=== PATIENT | female | born 1990 | race Two or more races ===

== ENCOUNTER 2020-11-27 05:32 | Inpatient (IN) | payer OTHER ==
[2020-11-27] MEDS ORDERED: Terbutaline 1 MG/ML SDV SUBCUT PRN (06:07)
[2020-11-27] MEDS ORDERED: Carboprost Tromethamine 250 MCG/1 ML Amp IM PRN (06:07)
[2020-11-27] MEDS ORDERED: Sodium Chloride 0.9% 10 ML SDV IV PRN (06:07)
[2020-11-27] MEDS ORDERED: Ondansetron 4 MG/2 ML SDV IVPUSH PRN (06:07)
[2020-11-27] MEDS ORDERED: Tranexamic Acid 1,000 MG in Sodium Chloride 0.9% 100 ML IV PRN (06:07)
[2020-11-27] MEDS ORDERED: Sodium Chloride 0.9% 2.5 ML Syringe FLUSH PRN (06:07)
[2020-11-27] MEDS ORDERED: Water For Irrigation,Sterile 1,000 ML Container IRR PRN (06:07)
[2020-11-27] MEDS ORDERED: Butorphanol 1 MG/ML SDV IVPUSH PRN (06:07)
[2020-11-27] MEDS ORDERED: Sodium Chloride 0.9% 10 ML Syringe FLUSH PRN (06:07)
[2020-11-27] MEDS ORDERED: Lidocaine 1% 50 ML MDV INJECT PRN (06:07)
[2020-11-27] MEDS ORDERED: Methylergonovine 0.2 MG/1 ML Amp IM PRN (06:07)
[2020-11-27] MEDS ORDERED: Misoprostol 200 MCG Tab PO PRN (06:07)
[2020-11-27] MEDS ORDERED: Oxytocin/0.9 % Sodium Chloride 30 UNIT/500 ML BAG IV SCH ×2 (06:15)
[2020-11-27] MEDS ORDERED: 50% Dextrose in Water 50 ML Syringe IVPUSH PRN ×2 (06:16→15:31)
[2020-11-27] MEDS ORDERED: Glucagon,Human Recombinant 1 MG Vial IM PRN ×2 (06:16→15:31)
[2020-11-27] MEDS ORDERED: Dextrose 5%-Lactated Ringers 1,000 ML IV SCH (06:30)
[2020-11-27] MEDS ORDERED: Insulin Regular, Human 100 Units/ML 10 ML Vial IV SCH (08:00)
[2020-11-27] MEDS: Lactated Ringers 1,000 ML IV SCH ×2 (08:22→11:46)
[2020-11-27] MEDS ORDERED: Insulin Regular in 0.9 % NACL 100 ML IV SCH (08:30)
[2020-11-27] MEDS ORDERED: Bupivacaine 0.25% 30 ML SDV ONE (11:26)
[2020-11-27] MEDS ORDERED: Ropivacaine HCl/PF 200 ML ONE (11:26)
[2020-11-27] MEDS ORDERED: Acetaminophen 500 MG Tab PO PRN (15:24)
[2020-11-27] MEDS ORDERED: Witch Hazel Medicated Pads 40/Jar TOP PRN (15:24)
[2020-11-27] MEDS ORDERED: Benzocaine/Menthol 20%-0.5% Spray 78 GM Cannister TOP PRN (15:24)
[2020-11-27] MEDS ORDERED: Bisacodyl 10 MG Supp RECTAL PRN (15:24)
[2020-11-27] MEDS ORDERED: Docusate Sodium 100 MG Cap PO PRN (15:24)
[2020-11-27] MEDS ORDERED: oxyCODONE 5 MG Tab PO PRN (15:24)
[2020-11-27] MEDS ORDERED: Lanolin 100% Cream 7 GM Tube TOP PRN (15:24)
[2020-11-27] MEDS ORDERED: Ibuprofen 400 MG Tab PO PRN (15:24)
--- NOTE | 2020-11-27 15:33 | PCM.DEL ---
L & D Note - General Info Date of Service: 11/27/20 Mother's Due Date: 12/05/20 - Delivery Note Labor: Induced by Oxytocin Delivery Outcome: Livebirth Infant Delivery Method: Spontaneous Vaginal Delivery-Single Presentation: Right Occiput Anterior (KAIDEN) Nuchal Cord: None Amniotic Fluid Description: Clear Episiotomy Type: None Laceration: None Placenta: Intact, Spontaneous Cord: 3 Vessels Estimated Blood Loss: 300 Resuscitation Needed: No [place]: Bulb Syringe Score 1 min: 7 Score 5 min: 8 - General Info Date of Service: 11/27/20 - Patient Data Weight - Most Recent: 121.563 kg Lab Results Last 24 Hours: Laboratory Results - last 24 hr 11/27/20 11/27/20 11/27/20 Range/Units 06:10 06:14 06:54 WBC 9.04 (4.0-11.0) K/uL RBC 4.65 (4.30-5.90) M/uL Hgb 13.8 (12.0-16.0) g/dL Hct 40.1 (36.0-46.0) % MCV 86.2 (80.0-98.0) fL MCH 29.7 (27.0-32.0) pg MCHC 34.4 (31.0-37.0) g/dL RDW Std Deviation 43.4 (28.0-62.0) fl RDW Coeff of Kat 14 (11.0-15.0) % Plt Count 217 (150-400) K/uL MPV 11.00 (7.40-12.00) fL Nucleated RBC % 0.0 /100WBC Nucleated RBCs # 0 K/uL POC Glucose 122 H (70-99) mg/dL SARS-CoV-2 RNA (ОЛЬГА) (NEGATIVE) Blood Type O POSITIVE Antibody Screen NEGATIVE 11/27/20 11/27/20 11/27/20 Range/Units 07:00 10:22 11:07 WBC (4.0-11.0) K/uL RBC (4.30-5.90) M/uL Hgb (12.0-16.0) g/dL Hct (36.0-46.0) % MCV (80.0-98.0) fL MCH (27.0-32.0) pg MCHC (31.0-37.0) g/dL RDW Std Deviation (28.0-62.0) fl RDW Coeff of Kat (11.0-15.0) % Plt Count (150-400) K/uL MPV (7.40-12.00) fL Nucleated RBC % /100WBC Nucleated RBCs # K/uL POC Glucose 129 H 124 H (70-99) mg/dL SARS-CoV-2 RNA (ОЛЬГА) NEGATIVE (NEGATIVE) Blood Type Antibody Screen 11/27/20 11/27/20 11/27/20 Range/Units 12:02 13:02 14:03 WBC (4.0-11.0) K/uL RBC (4.30-5.90) M/uL Hgb (12.0-16.0) g/dL Hct (36.0-46.0) % MCV (80.0-98.0) fL MCH (27.0-32.0) pg MCHC (31.0-37.0) g/dL RDW Std Deviation (28.0-62.0) fl RDW Coeff of Kat (11.0-15.0) % Plt Count (150-400) K/uL MPV (7.40-12.00) fL Nucleated RBC % /100WBC Nucleated RBCs # K/uL POC Glucose 132 H 108 H 96 (70-99) mg/dL SARS-CoV-2 RNA (ОЛЬГА) (NEGATIVE) Blood Type Antibody Screen 11/27/20 Range/Units 15:00 WBC (4.0-11.0) K/uL RBC (4.30-5.90) M/uL Hgb (12.0-16.0) g/dL Hct (36.0-46.0) % MCV (80.0-98.0) fL MCH (27.0-32.0) pg MCHC (31.0-37.0) g/dL RDW Std Deviation (28.0-62.0) fl RDW Coeff of Kat (11.0-15.0) % Plt Count (150-400) K/uL MPV (7.40-12.00) fL Nucleated RBC % /100WBC Nucleated RBCs # K/uL POC Glucose 114 H (70-99) mg/dL SARS-CoV-2 RNA (ОЛЬГА) (NEGATIVE) Blood Type Antibody Screen Med Orders - Current: Current Medications Carboprost Tromethamine (Carboprost Tromethamine 250 Mcg/1 Ml Amp) 250 mcg IM ASDIRECTED PRN PRN Reason: Post Hemorrhage Oxytocin/Sodium Chloride (Oxytocin 30 Unit/500 Ml-Ns) 30 unit in 500 mls @ 999 mls/hr IV TITRATE ELEANOR Tranexamic Acid 1,000 mg/ (Sodium Chloride) 110 mls @ 660 mls/hr IV ONETIME PRN PRN Reason: Bleeding Oxytocin/Sodium Chloride (Oxytocin 30 Unit/500 Ml-Ns) 30 unit in 500 mls @ 2 mls/hr IV TITRATE ELEANOR; Protocol Last Titration: 11/27/20 13:32 Dose: 10 munits/min, 10 mls/hr Documented by: Lactated Ringer's (Ringers, Lactated) 1,000 mls @ 150 mls/hr IV ASDIRECTED ELEANOR Last Admin: 11/27/20 11:46 Dose: 150 mls/hr Documented by: Dextrose/Lactated Ringer's (Dextrose 5%-Lactated Ringers) 1,000 mls @ 100 mls /hr IV ASDIRECTED ELEANOR Last Admin: 11/27/20 09:15 Dose: 100 mls/hr Documented by: Insulin Regular in 0.9 % NACL (Myxredlin In Ns 100 Unit/100 Ml) 100 mls @ 0.5 mls/hr IV TITRATE ELEANOR; Protocol Last Titration: 11/27/20 14:07 Dose: 0.5 unit/hr, 0.5 mls/hr Documented by: Ondansetron HCl (Ondansetron 4 Mg/2 Ml Sdv) 4 mg IVPUSH Q6H PRN PRN Reason: Nausea/Vomiting Sodium Chloride (Sodium Chloride 0.9% 10 Ml Syringe) 10 ml FLUSH ASDIRECTED PRN PRN Reason: Keep Vein Open Sodium Chloride (Sodium Chloride 0.9% 2.5 Ml Syringe) 2.5 ml FLUSH ASDIRECTED PRN PRN Reason: Keep Vein Open Sodium Chloride (Sodium Chloride 0.9% 10 Ml Sdv) 10 ml IV ASDIRECTED PRN PRN Reason: IV Use Sterile Water (Water For Irrigation,Sterile 1,000 Ml Container) 1,000 ml IRR ASDIRECTED PRN PRN Reason: delivery Terbutaline Sulfate (Terbutaline 1 Mg/Ml Sdv) 0.25 mg SUBCUT ASDIRECTED PRN PRN Reason: Tacysystole Discontinued Medications Bupivacaine HCl (Bupivacaine 0.25% 30 Ml Sdv) Confirm Administered Dose 30 ml .ROUTE .STK-MED ONE Stop: 11/27/20 11:27 Butorphanol Tartrate (Butorphanol 1 Mg/Ml Sdv) 1 mg IVPUSH Q1H PRN PRN Reason: Pain (severe 7-10) Last Admin: 11/27/20 10:23 Dose: 1 mg Documented by: Dextrose/Water (50% Dextrose In Water 50 Ml Syringe) 50 ml IVPUSH ASDIRECTED PRN PRN Reason: Hypoglycemia Glucagon (Glucagon,Human Recombinant 1 Mg Vial) 1 mg IM ASDIRECTED PRN PRN Reason: Hypoglycemia Ropivacaine (Naropin 0.2%) Confirm Administered Dose 200 mls @ as directed .ROUTE .STK-MED ONE Stop: 11/27/20 11:27 Insulin Human Regular (Insulin Regular, Human 100 Units/Ml 10 Ml Vial) 0.5 unit IV Q2HR ELEANOR; Protocol Lidocaine HCl (Lidocaine 1% 50 Ml Mdv) 50 ml INJECT ONETIME PRN PRN Reason: Laceration repair Methylergonovine Maleate (Methylergonovine 0.2 Mg/1 Ml Amp) 0.2 mg IM DIRECTED PRN PRN Reason: Post Hemorrhage Misoprostol (Misoprostol 200 Mcg Tab) 200 mcg PO ONETIME PRN PRN Reason: Post Hemorrhage - Exam Urinary Catheter Total Time: 0Days 0Hours - Problem List Review Problem List Initiated/Reviewed/Updated: Yes - Assessment Assessment:: 30-year-old (38w6d dated by ultrasound at 8 weeks) induction of labor d/t gestational diabetes insulin controlled with uncomplicated vaginal delivery. Viable girl. Apgars 7 and 8. Weight 3810 grams. GBS negative, rubella immune, . POC glucose 114 - Plan Plan:: - Routine care - Insulin adjusted - Encourage ambulation - F/u in clinic in 4 weeks
--- NOTE | 2020-11-27 16:30 | PCM.PREANE ---
Preanesthetic Assessment - Anesthesia/Transfusion/Family Hx Anesthesia History: Prior Anesthesia Without Reaction Family History of Anesthesia Reaction: No Transfusion History: No Prior Transfusion(s) Intubation History: Unknown - Review of Systems General: No Symptoms Pulmonary: No Symptoms Cardiovascular: No Symptoms Gastrointestinal: No Symptoms Neurological: No Symptoms Other: Reports: None - Physical Assessment Height: 5 ft 4 in Weight: 268 lb ASA Class: 2 Mental Status: Alert & Oriented x3 Airway Class: Mallampati = 3 Dentition: Reports: Normal Dentition ROM/Head Extension: Full Lungs: Clear to Auscultation, Normal Respiratory Effort Cardiovascular: Regular Rate, Regular Rhythm - Lab Values: Laboratory Last Values WBC 9.04 K/uL (4.0-11.0) 11/27/20 06:54 RBC 4.65 M/uL (4.30-5.90) 11/27/20 06:54 Hgb 13.8 g/dL (12.0-16.0) 11/27/20 06:54 Hct 40.1 % (36.0-46.0) 11/27/20 06:54 MCV 86.2 fL (80.0-98.0) 11/27/20 06:54 MCH 29.7 pg (27.0-32.0) 11/27/20 06:54 MCHC 34.4 g/dL (31.0-37.0) 11/27/20 06:54 RDW Std Deviation 43.4 fl (28.0-62.0) 11/27/20 06:54 RDW Coeff of Kat 14 % (11.0-15.0) 11/27/20 06:54 Plt Count 217 K/uL (150-400) 11/27/20 06:54 MPV 11.00 fL (7.40-12.00) 11/27/20 06:54 Nucleated RBC % 0.0 /100WBC 11/27/20 06:54 Nucleated RBCs # 0 K/uL 11/27/20 06:54 Cord ABG pH 7.277 (7.18-7.38) 11/27/20 15:03 Cord ABG Base Excess -3 (-10--2) 11/27/20 15:03 Cord VBG pH 7.325 (7.25-7.45) 11/27/20 15:03 Cord VBG Base Excess -2 (-10--2) 11/27/20 15:03 POC Glucose 114 mg/dL (70-99) H 11/27/20 15:00 SARS-CoV-2 RNA (ОЛЬГА) NEGATIVE (NEGATIVE) 11/27/20 07:00 Blood Type O POSITIVE 11/27/20 06:10 Antibody Screen NEGATIVE 11/27/20 06:10 - Allergies Allergies/Adverse Reactions: Allergies Allergy/AdvReac Type Severity Reaction Status Date / Time aspirin Allergy Severe Stomach Verified 11/27/20 06:03 Upset - Blood Blood Available: Yes Product(s) Available: PRBC, FFP, Platelets - Anesthesia Plan Pre-Op Medication Ordered: None - Acknowledgements Anesthesia Type Planned: Epidural Pt an Appropriate Candidate for the Planned Anesthesia: Yes Alternatives and Risks of Anesthesia Discussed w Pt/Guardian: Yes Pt/Guardian Understands and Agrees with Anesthesia Plan: Yes PreAnesthesia Questionnaire - Past Health History Medical/Surgical History: Denies Medical/Surgical History [employer] History: Reports: Endocrine/Metabolic History: Reports: Diabetes, Gestational, Obesity/BMI 30+ - Past Surgical History Endocrine Surgical History: Reports: None - SUBSTANCE USE Tobacco Use Status *Q: Never Tobacco User Recreational Drug Use History: No - HOME MEDS Home Medications: Home Meds Insulin NPH/Insulin Reg,Human [HumuLIN 70-30] 12 units SQ BEDTIME 11/27/20 [History] Insulin Regular, Human [HumuLIN R] 12 unit SQ BEDTIME 11/27/20 [History] - CURRENT (IN HOUSE) MEDS Current Meds: Current Medications Acetaminophen (Acetaminophen 500 Mg Tab) 500 mg PO Q4H PRN PRN Reason: Pain (mild 1-3) Acetaminophen (Acetaminophen 500 Mg Tab) 1,000 mg PO Q4H PRN PRN Reason: Pain (mild 1-3) Benzocaine/Menthol (Benzocaine/Menthol 20%-0.5% [place] 78 Gm Cannister) 78 gm TOP ASDIRECTED PRN PRN Reason: Perineal Comfort Measure Last Admin: 11/27/20 16:24 Dose: 1 can Documented by: Bisacodyl (Bisacodyl 10 Mg Supp) 10 mg RECTAL ONETIME PRN PRN Reason: Constipation Carboprost Tromethamine (Carboprost Tromethamine 250 Mcg/1 Ml Amp) 250 mcg IM ASDIRECTED PRN PRN Reason: Post Hemorrhage Dextrose/Water (50% Dextrose In Water 50 Ml Syringe) 50 ml IVPUSH ASDIRECTED PRN PRN Reason: Hypoglycemia Docusate Sodium (Docusate Sodium 100 Mg Cap) 100 mg PO Q12H PRN PRN Reason: Constipation Emollient Ointment (Lanolin 100% Cream 7 Gm Tube) 0 gm TOP ASDIRECTED PRN PRN Reason: Sore Nipples Glucagon (Glucagon,Human Recombinant 1 Mg Vial) 1 mg IM ASDIRECTED PRN PRN Reason: Hypoglycemia Oxytocin/Sodium Chloride (Oxytocin 30 Unit/500 Ml-Ns) 30 unit in 500 mls @ 999 mls/hr IV TITRATE ELEANOR Last Admin: 11/27/20 15:04 Dose: 500 mls/hr Documented by: Tranexamic Acid 1,000 mg/ (Sodium Chloride) 110 mls @ 660 mls/hr IV ONETIME PRN PRN Reason: Bleeding Oxytocin/Sodium Chloride (Oxytocin 30 Unit/500 Ml-Ns) 30 unit in 500 mls @ 2 mls/hr IV TITRATE ELEANOR; Protocol Last Titration: 11/27/20 13:32 Dose: 10 munits/min, 10 mls/hr Documented by: Lactated Ringer's (Ringers, Lactated) 1,000 mls @ 150 mls/hr IV ASDIRECTED [facility] Last Admin: 11/27/20 11:46 Dose: 150 mls/hr Documented by: Dextrose/Lactated Ringer's (Dextrose 5%-Lactated Ringers) 1,000 mls @ 100 mls/hr IV ASDIRECTED [facility] Last Admin: 11/27/20 09:15 Dose: 100 mls/hr Documented by: Insulin Regular in 0.9 % NACL (Myxredlin In Ns 100 Unit/100 Ml) 100 mls @ 0.5 mls/hr IV TITRATE [facility]; Protocol Last Titration: 11/27/20 15:00 Dose: 1 unit/hr, 1 mls/hr Documented by: Ibuprofen (Ibuprofen 400 Mg Tab) 400 mg PO Q4H PRN PRN Reason: Pain (mild 1-3) Ibuprofen (Ibuprofen 800 Mg Tab) 800 mg PO Q6H PRN PRN Reason: Pain (mild 1-3) Insulin Human Regular (Insulin Regular, Human 100 Units/Ml 10 Ml Vial) 0 unit SUBCUT QIDACANDBED [facility]; Protocol Ondansetron HCl (Ondansetron 4 Mg/2 Ml Sdv) 4 mg IVPUSH Q6H PRN PRN Reason: Nausea/Vomiting Oxycodone HCl (Oxycodone 5 Mg Tab) 5 mg PO Q2H PRN PRN Reason: Pain (severe 7-10) Sodium Chloride (Sodium Chloride 0.9% 10 Ml Syringe) 10 ml FLUSH ASDIRECTED PRN PRN Reason: Keep Vein Open Sodium Chloride (Sodium Chloride 0.9% 2.5 Ml Syringe) 2.5 ml FLUSH ASDIRECTED PRN PRN Reason: Keep Vein Open Sodium Chloride (Sodium Chloride 0.9% 10 Ml Sdv) 10 ml IV ASDIRECTED PRN PRN Reason: IV Use Sterile Water (Water For Irrigation,Sterile 1,000 Ml Container) 1,000 ml IRR ASDIRECTED PRN PRN Reason: delivery Terbutaline Sulfate (Terbutaline 1 Mg/Ml Sdv) 0.25 mg SUBCUT ASDIRECTED PRN PRN Reason: Tacysystole Witch Eli (Witch Eli Medicated Pads 40/Jar) 1 pad TOP ASDIRECTED PRN PRN Reason: comfort care Last Admin: 11/27/20 16:24 Dose: 1 container Documented by: Discontinued Medications Bupivacaine HCl (Bupivacaine 0.25% 30 Ml Sdv) Confirm Administered Dose 30 ml .ROUTE .STK-MED ONE Stop: 11/27/20 11:27 Butorphanol Tartrate (Butorphanol 1 Mg/Ml Sdv) 1 mg IVPUSH Q1H PRN PRN Reason: Pain (severe 7-10) Last Admin: 11/27/20 10:23 Dose: 1 mg Documented by: Dextrose/Water (50% Dextrose In Water 50 Ml Syringe) 50 ml IVPUSH ASDIRECTED PRN PRN Reason: Hypoglycemia Glucagon (Glucagon,Human Recombinant 1 Mg Vial) 1 mg IM ASDIRECTED PRN PRN Reason: Hypoglycemia Ropivacaine (Naropin 0.2%) Confirm Administered Dose 200 mls @ as directed .ROUTE .[employer]-MED ONE Stop: 11/27/20 11:27 Insulin Human Regular (Insulin Regular, Human 100 Units/Ml 10 Ml Vial) 0.5 unit IV Q2HR [facility]; Protocol Lidocaine HCl (Lidocaine 1% 50 Ml Mdv) 50 ml INJECT ONETIME PRN PRN Reason: Laceration repair Methylergonovine Maleate (Methylergonovine 0.2 Mg/1 Ml Amp) 0.2 mg IM ASDIRECTED PRN PRN Reason: Post Hemorrhage Misoprostol (Misoprostol 200 Mcg Tab) 200 mcg PO ONETIME PRN PRN Reason: Post Hemorrhage - Pre-Procedure Checklist Attending Provider Aware: Yes Chart Reviewed: Yes Consent Signed: Yes Labs Reviewed: Yes VS/FHR Reviewed: Yes Patient Identification Confirmation Method: Reports: Verbal Patient Pt an Appropriate Candidate for the Planned Anesthesia: Yes Alternatives and Risks of Anesthesia Discussed w Pt/Guardian: Yes - Procedure Procedure Start Date: 11/27/20 Procedure Start Time: 11:[address]: Reports: Blood Pressure, Heart Rate, SPO2 Functional IV: Yes Safety Measures: Reports: Patient Identified, Procedure Verified, Site Verified, Procedure Time Out Patient Position: Reports: Sitting Prep: Reports: Betadine x3 Local Anesthetic: Reports: Intradermal Wheal w Lidocaine 1% Regional Placement Level: Reports: L3-4 Needle: Reports: 17 g Touhy Approach: Reports: Midline Technique: Reports: ABBIE Plastic Syringe Parasthesia: Reports: None Fluid Obtained: Reports: None Test Dose Time: 11:36 Test Dose Medication: Reports: Lidocaine 1.5% w Epinephrine 1:200,000 Test Dose Response: Reports: Negative Loading Dose Time: 11:35 Loading Dose Medication: bupivicaine 0.25% 10 cc Loading Dose Patient Position: sitting Continuous Infusion Start Time: 11:40 Continuous Infusion Medication: ropivicaine 0.2% Continuous Infusion Rate: 16 Continuous Infusion PCS Bolus Option: 4 Continuous Infusion Lockout Dose (cc/hr): 32 VS and FHR Monitored in Unit Post Placement: Yes Procedure End Date: 11/27/20 Procedure End Time: 12:32
--- NOTE | 2020-11-27 16:30 | PCM.POSTAN ---
POST ANESTHESIA ASSESSMENT - MENTAL STATUS Mental Status: Alert, Oriented - RESPIRATORY Respiratory Status: Respiratory Rate WNL, Airway Patent, O2 Saturation Stable - CARDIOVASCULAR CV Status: Pulse Rate WNL, Blood Pressure Stable - GASTROINTESTINAL GI Status: No Symptoms - POST OP HYDRATION Hydration Status: Adequate & Stable
[2020-11-27] MEDS: Insulin Regular, Human 100 Units/ML 10 ML Vial SUBCUT SCH ×2 (18:07→23:00)
[2020-11-27] MEDS: Ibuprofen 800 MG Tab PO PRN (18:47)
--- NOTE | 2020-11-27 22:35 | OR ---
SURGEON: Yaritza Sanches M.D. DATE OF PROCEDURE: 11/27/2020 PREOPERATIVE DIAGNOSES: 1. 39-week intrauterine . 2. Gestational diabetes, insulin dependent. POSTOPERATIVE DIAGNOSES: 1. 39-week intrauterine . 2. Gestational diabetes, insulin dependent. PROCEDURE: Spontaneous vaginal delivery with intact perineum. PRIMARY SURGEON: Yaritza Sanches M.D. ANESTHESIA: Epidural. ESTIMATED BLOOD LOSS: 250 mL. COMPLICATIONS: None known. FINDINGS: Viable female. scores of 7 at one and 8 at five minutes. Weight is pending. Spontaneous delivery, intact placenta, three-vessel cord. DISPOSITION: Infant to , mom in LDRP. PROCEDURE DETAILS: Melanie is a 30-year-old, G2, P1, at 39 weeks' gestation who presents today for scheduled induction of labor due to gestational diabetes in that is insulin dependent. Upon admission, the patient had a category 1 heart tracing, routine labs were reassuring. She was COVID negative. She was initiated on an insulin drip and started on Pitocin, responded very nicely to this. Shortly after 9 a.m., was found to be 3 cm, 70% effaced, minus 2 station, underwent amniotomy, as she is group B strep negative. A large amount of clear fluid was returned. The patient continued to progress through the morning hours, became more uncomfortable, underwent regional anesthesia in the form of epidural, became more comfortable. Shortly before noon, she was found to be 6 cm, 80% effaced, minus 2 station, and shortly before 3 p.m., was found to be complete, 100% effaced, +3 station. The patient was placed in modified dorsal lithotomy position, was prepped and draped in the usual aseptic manner. With the next few contractions, she was able to push delivering the infant's head atraumatically spontaneously, followed by anterior shoulder and posterior shoulder, and remainder of the body without difficulty. The infant's oropharynx and nares were bulb suctioned. After a delayed, cord was clamped x2 and cut. Cord arterial, cord venous, and cord blood sampling were obtained. Light suprapubic pressure was applied while the placenta was delivered spontaneously intact. Vigorous fundal and uterine massage was then applied while 30 units of Pitocin was delivered in 500 mL of IV fluid. Upon inspection of cervix, vaginal sidewall, and perineum, they were found to be intact. Uterus remained firm. Hemostasis evident. Sponge, instrument, and needle counts correct. The patient remained in LDRP, to nursery. LB / ADAM /[id number]
[2020-11-28] MEDS: Ibuprofen 800 MG Tab PO PRN ×3 (01:30→18:36)
--- NOTE | 2020-11-28 07:39 | PCM.PNPP ---
- General Info Date of Service: 11/28/20 Admission Dx/Problem (Free Text): Uncomplicated vaginal delivery Subjective Update: Having pelvic pain this morning. Taking motrin and using a heating pad. POC glucose 184 last night and 159 this morning. No other concerns. Ambulating, urinating, and passing gas. Has not eaten this morning, but tolerated food last night. . - Review of Systems General: Reports: No Symptoms HEENT: Reports: No Symptoms Pulmonary: Reports: No Symptoms Cardiovascular: Reports: No Symptoms Gastrointestinal: Reports: Abdominal Pain Genitourinary: Reports: No Symptoms Musculoskeletal: Reports: No Symptoms Skin: Reports: No Symptoms Neurological: Reports: No Symptoms Psychiatric: Reports: No Symptoms - General Info Date of Service: 11/28/20 - Patient Data Vital Signs - Most Recent: Last Vital Signs Temp 36.2 C 11/28/20 06:00 Pulse 76 11/28/20 06:00 Resp 16 11/28/20 06:00 BP 105/64 11/28/20 06:00 Pulse Ox 97 11/28/20 06:00 Weight - Most Recent: 121.563 kg I&O - Last 24 Hours: Intake & Output 11/27/20 11/28/20 11/28/20 22:59 06:59 14:59 Output Total 500 Balance -500 Lab Results - Last 24 Hours: Laboratory Results - last 24 hr 11/27/20 11/27/20 11/27/20 Range/Units 06:10 07:00 10:22 Hgb (12.0-16.0) g/dL Hct (36.0-46.0) % Cord ABG pH (7.18-7.38) Cord ABG Base Excess (-10--2) Cord VBG pH (7.25-7.45) Cord VBG Base Excess (-10--2) POC Glucose 129 H (70-99) mg/dL SARS-CoV-2 RNA (ОЛЬГА) NEGATIVE (NEGATIVE) Blood Type O POSITIVE Antibody Screen NEGATIVE 11/27/20 11/27/20 11/27/20 Range/Units 11:07 12:02 13:02 Hgb (12.0-16.0) g/dL Hct (36.0-46.0) % Cord ABG pH (7.18-7.38) Cord ABG Base Excess (-10--2) Cord VBG pH (7.25-7.45) Cord VBG Base Excess (-10--2) POC Glucose 124 H 132 H 108 H (70-99) mg/dL SARS-CoV-2 RNA (ОЛЬГА) (NEGATIVE) Blood Type Antibody Screen 11/27/20 11/27/20 11/27/20 Range/Units 14:03 15:00 15:03 Hgb (12.0-16.0) g/dL Hct (36.0-46.0) % Cord ABG pH 7.277 (7.18-7.38) Cord ABG Base Excess -3 (-10--2) Cord VBG pH 7.325 (7.25-7.45) Cord VBG Base Excess -2 (-10--2) POC Glucose 96 114 H (70-99) mg/dL SARS-CoV-2 RNA (ОЛЬГА) (NEGATIVE) Blood Type Antibody Screen 11/27/20 11/27/20 11/28/20 Range/Units 18:07 22:46 05:05 Hgb 11.9 L (12.0-16.0) g/dL Hct 35.6 L (36.0-46.0) % Cord ABG pH (7.18-7.38) Cord ABG Base Excess (-10--2) Cord VBG pH (7.25-7.45) Cord VBG Base Excess (-10--2) POC Glucose 106 H 185 H (70-99) mg/dL SARS-CoV-2 RNA (ОЛЬГА) (NEGATIVE) Blood Type Antibody Screen 11/28/20 Range/Units 07:09 Hgb (12.0-16.0) g/dL Hct (36.0-46.0) % Cord ABG pH (7.18-7.38) Cord ABG Base Excess (-10--2) Cord VBG pH (7.25-7.45) Cord VBG Base Excess (-10--2) POC Glucose 159 H (70-99) mg/dL SARS-CoV-2 RNA (ОЛЬГА) (NEGATIVE) Blood Type Antibody Screen Med Orders - Current: Current Medications Acetaminophen (Acetaminophen 500 Mg Tab) 500 mg PO Q4H PRN PRN Reason: Pain (mild 1-3) Acetaminophen (Acetaminophen 500 Mg Tab) 1,000 mg PO Q4H PRN PRN Reason: Pain (mild 1-3) Benzocaine/Menthol (Benzocaine/Menthol 20%-0.5% [place] 78 Gm Cannister) 78 gm TOP ASDIRECTED PRN PRN Reason: Perineal Comfort Measure Last Admin: 11/27/20 16:24 Dose: 1 can Documented by: Bisacodyl (Bisacodyl 10 Mg Supp) 10 mg RECTAL ONETIME PRN PRN Reason: Constipation Carboprost Tromethamine (Carboprost Tromethamine 250 Mcg/1 Ml Amp) 250 mcg IM ASDIRECTED PRN PRN Reason: Post Hemorrhage Dextrose/Water (50% Dextrose In Water 50 Ml Syringe) 50 ml IVPUSH ASDIRECTED PRN PRN Reason: Hypoglycemia Docusate Sodium (Docusate Sodium 100 Mg Cap) 100 mg PO Q12H PRN PRN Reason: Constipation Emollient Ointment (Lanolin 100% Cream 7 Gm Tube) 0 gm TOP ASDIRECTED PRN PRN Reason: Sore Nipples Glucagon (Glucagon,Human Recombinant 1 Mg Vial) 1 mg IM ASDIRECTED PRN PRN Reason: Hypoglycemia Oxytocin/Sodium Chloride (Oxytocin 30 Unit/500 Ml-Ns) 30 unit in 500 mls @ 999 mls/hr IV TITRATE [facility] Last Admin: 11/27/20 15:04 Dose: 500 mls/hr Documented by: Tranexamic Acid 1,000 mg/ (Sodium Chloride) 110 mls @ 660 mls/hr IV ONETIME PRN PRN Reason: Bleeding Oxytocin/Sodium Chloride (Oxytocin 30 Unit/500 Ml-Ns) 30 unit in 500 mls @ 2 mls/hr IV TITRATE [facility]; Protocol Last Titration: 11/27/20 13:32 Dose: 10 munits/min, 10 mls/hr Documented by: Lactated Ringer's (Ringers, Lactated) 1,000 mls @ 150 mls/hr IV ASDIRECTED [facility] Last Admin: 11/27/20 11:46 Dose: 150 mls/hr Documented by: Dextrose/Lactated Ringer's (Dextrose 5%-Lactated Ringers) 1,000 mls @ 100 mls/hr IV ASDIRECTED [facility] Last Admin: 11/27/20 09:15 Dose: 100 mls/hr Documented by: Insulin Regular in 0.9 % NACL (Myxredlin In Ns 100 Unit/100 Ml) 100 mls @ 0.5 mls/hr IV TITRATE [facility]; Protocol Last Titration: 11/27/20 15:00 Dose: 1 unit/hr, 1 mls/hr Documented by: Ibuprofen (Ibuprofen 400 Mg Tab) 400 mg PO Q4H PRN PRN Reason: Pain (mild 1-3) Ibuprofen (Ibuprofen 800 Mg Tab) 800 mg PO Q6H PRN PRN Reason: Pain (mild 1-3) Last Admin: 11/28/20 01:30 Dose: 800 mg Documented by: Insulin Human Regular (Insulin Regular, Human 100 Units/Ml 10 Ml Vial) 0 unit SUBCUT QIDACANDBED [facility]; Protocol Last Admin: 11/27/20 23:00 Dose: 1 unit Documented by: Ondansetron HCl (Ondansetron 4 Mg/2 Ml Sdv) 4 mg IVPUSH Q6H PRN PRN Reason: Nausea/Vomiting Oxycodone HCl (Oxycodone 5 Mg Tab) 5 mg PO Q2H PRN PRN Reason: Pain (severe 7-10) Sodium Chloride (Sodium Chloride 0.9% 10 Ml Syringe) 10 ml FLUSH ASDIRECTED PRN PRN Reason: Keep Vein Open Sodium Chloride (Sodium Chloride 0.9% 2.5 Ml Syringe) 2.5 ml FLUSH ASDIRECTED PRN PRN Reason: Keep Vein Open Sodium Chloride (Sodium Chloride 0.9% 10 Ml Sdv) 10 ml IV ASDIRECTED PRN PRN Reason: IV Use Sterile Water (Water For Irrigation,Sterile 1,000 Ml Container) 1,000 ml IRR ASDIRECTED PRN PRN Reason: delivery Terbutaline Sulfate (Terbutaline 1 Mg/Ml Sdv) 0.25 mg SUBCUT ASDIRECTED PRN PRN Reason: Tacysystole Witch Eli (Witch Eli Medicated Pads 40/Jar) 1 pad TOP ASDIRECTED PRN PRN Reason: comfort care Last Admin: 11/27/20 16:24 Dose: 1 container Documented by: Discontinued Medications Bupivacaine HCl (Bupivacaine 0.25% 30 Ml Sdv) Confirm Administered Dose 30 ml .ROUTE .STK-MED ONE Stop: 11/27/20 11:27 Butorphanol Tartrate (Butorphanol 1 Mg/Ml Sdv) 1 mg IVPUSH Q1H PRN PRN Reason: Pain (severe 7-10) Last Admin: 11/27/20 10:23 Dose: 1 mg Documented by: Dextrose/Water (50% Dextrose In Water 50 Ml Syringe) 50 ml IVPUSH ASDIRECTED PRN PRN Reason: Hypoglycemia Glucagon (Glucagon,Human Recombinant 1 Mg Vial) 1 mg IM ASDIRECTED PRN PRN Reason: Hypoglycemia Ropivacaine (Naropin 0.2%) Confirm Administered Dose 200 mls @ as directed .ROUTE .[facility] ONE Stop: 11/27/20 11:27 Insulin Human Regular (Insulin Regular, Human 100 Units/Ml 10 Ml Vial) 0.5 unit IV Q2HR [facility]; Protocol Lidocaine HCl (Lidocaine 1% 50 Ml Mdv) 50 ml INJECT ONETIME PRN PRN Reason: Laceration repair Methylergonovine Maleate (Methylergonovine 0.2 Mg/1 Ml Amp) 0.2 mg IM ASDIRECTED PRN PRN Reason: Post Hemorrhage Misoprostol (Misoprostol 200 Mcg Tab) 200 mcg PO ONETIME PRN PRN Reason: Post Hemorrhage - Interaction Infant Disposition, : [place] to Nursery Infant Feeding: Breastfed Infant; Nursed Well Support Person: - Recovery Exam Fundal Tone: Firm Fundal Level: 1 Fingerbreadths Below Umbilicus Fundal Placement: Midline Lochia Amount: Scant Lochia Color: Rubra/Red Perineum Description: Intact, Minimal Bruising/Swelling Episiotomy/Laceration: None Bladder Status: Voiding Urinary Elimination: Voided Other Urinary Elimination, : Waiting for void post delivery/post catheter. - Exam General: Alert, Oriented Neck: Supple Lungs: Clear to Auscultation, Normal Respiratory Effort Cardiovascular: Regular Rate, Regular Rhythm GI/Abdominal Exam: Normal Bowel Sounds, Soft, No Organomegaly, Tender Extremities: Normal Inspection, Normal Range of Motion, Non-Tender, No Pedal Edema, Normal Capillary Refill Skin: Warm, Dry, Intact Neurological: No New Focal Deficit Psy/Mental Status: Alert, Normal Affect, Normal Mood - Problem List Review Problem List Initiated/Reviewed/Updated: Yes - Assessment Assessment:: 30-year-old (38w6d dated by ultrasound at 8 weeks) induction of labor d/t gestational diabetes insulin controlled with uncomplicated vaginal delivery. Viable girl. Apgars 7 and 8. Weight 3810 grams. GBS negative, rubella immune, . Having persistent pelvic pain while taking motrin, but received last dose at 0130. Hbg 11.9. POC glucose 159 this morning and 184 last night. - Plan Plan:: - Discussed the availability of motrin every 4 hours - Routine care - Can consider increased bedtime dose of insulin - Encourage ambulation - F/u in clinic in 4 weeks
[2020-11-28] MEDS: Insulin Regular, Human 100 Units/ML 10 ML Vial SUBCUT SCH ×4 (07:54→21:12)
--- NOTE | 2020-11-28 08:30 | PCM.SN.2 ---
- Free Text/Narrative Note: Patient seen and examined--VS are stable. Having some cramping which motrin is helping to control overall. Lochia is minimal. Patient on sliding scale for insulin for now. Will monitor and decide on home regimen based on today's glucose readings. Anticipate discharge in the morning.
[2020-11-28] MEDS: Acetaminophen 500 MG Tab PO PRN ×2 (12:26→21:10)
[2020-11-29] MEDS: Acetaminophen 500 MG Tab PO PRN (04:59)
[2020-11-29] MEDS: Ibuprofen 800 MG Tab PO PRN (04:59)
--- NOTE | 2020-11-29 08:13 | PCM.PNPP ---
<Maria Ines Kc - Last Filed: 11/29/20 08:14> - General Info Date of Service: 11/29/20 Admission Dx/Problem (Free Text): Uncomplicated vaginal delivery Subjective Update: No concerns overnight. Pain controlled with motrin. Ambulating, urinating, and tolerating food. and supplementing with formula. - Review of Systems General: Reports: No Symptoms HEENT: Reports: No Symptoms Pulmonary: Reports: No Symptoms Cardiovascular: Reports: No Symptoms Gastrointestinal: Reports: No Symptoms Genitourinary: Reports: No Symptoms Musculoskeletal: Reports: No Symptoms Skin: Reports: No Symptoms Neurological: Reports: No Symptoms Psychiatric: Reports: No Symptoms - General Info Date of Service: 11/29/20 - Patient Data Vital Signs - Most Recent: Last Vital Signs Temp 36.1 C 11/29/20 08:00 Pulse 71 11/29/20 08:00 Resp 18 11/29/20 08:00 BP 110/74 11/29/20 08:00 Pulse Ox 96 11/29/20 08:00 Weight - Most Recent: 121.563 kg Lab Results - Last 24 Hours: Laboratory Results - last 24 hr 11/28/20 11/28/20 11/28/20 Range/Units 12:12 18:05 21:12 POC Glucose 112 H 127 H 124 H (70-99) mg/dL Med Orders - Current: Current Medications Acetaminophen (Acetaminophen 500 Mg Tab) 500 mg PO Q4H PRN PRN Reason: Pain (mild 1-3) Acetaminophen (Acetaminophen 500 Mg Tab) 1,000 mg PO Q4H PRN PRN Reason: Pain (mild 1-3) Last Admin: 11/29/20 04:59 Dose: 1,000 mg Documented by: Benzocaine/Menthol (Benzocaine/Menthol 20%-0.5% [place] 78 Gm Cannister) 78 gm TOP ASDIRECTED PRN PRN Reason: Perineal Comfort Measure Last Admin: 11/27/20 16:24 Dose: 1 can Documented by: Bisacodyl (Bisacodyl 10 Mg Supp) 10 mg RECTAL ONETIME PRN PRN Reason: Constipation Carboprost Tromethamine (Carboprost Tromethamine 250 Mcg/1 Ml Amp) 250 mcg IM ASDIRECTED PRN PRN Reason: Post Hemorrhage Dextrose/Water (50% Dextrose In Water 50 Ml Syringe) 50 ml IVPUSH ASDIRECTED PRN PRN Reason: Hypoglycemia Docusate Sodium (Docusate Sodium 100 Mg Cap) 100 mg PO Q12H PRN PRN Reason: Constipation Last Admin: 11/28/20 12:26 Dose: 100 mg Documented by: Emollient Ointment (Lanolin 100% Cream 7 Gm Tube) 0 gm TOP ASDIRECTED PRN PRN Reason: Sore Nipples Glucagon (Glucagon,Human Recombinant 1 Mg Vial) 1 mg IM ASDIRECTED PRN PRN Reason: Hypoglycemia Oxytocin/Sodium Chloride (Oxytocin 30 Unit/500 Ml-Ns) 30 unit in 500 mls @ 999 mls/hr IV TITRATE [facility] Last Admin: 11/27/20 15:04 Dose: 500 mls/hr Documented by: Tranexamic Acid 1,000 mg/ (Sodium Chloride) 110 mls @ 660 mls/hr IV ONETIME PRN PRN Reason: Bleeding Oxytocin/Sodium Chloride (Oxytocin 30 Unit/500 Ml-Ns) 30 unit in 500 mls @ 2 mls/hr IV TITRATE [facility]; Protocol Last Titration: 11/27/20 13:32 Dose: 10 munits/min, 10 mls/hr Documented by: Lactated Ringer's (Ringers, Lactated) 1,000 mls @ 150 mls/hr IV ASDIRECTED [facility] Last Admin: 11/27/20 11:46 Dose: 150 mls/hr Documented by: Dextrose/Lactated Ringer's (Dextrose 5%-Lactated Ringers) 1,000 mls @ 100 mls/hr IV ASDIRECTED [facility] Last Admin: 11/27/20 09:15 Dose: 100 mls/hr Documented by: Insulin Regular in 0.9 % NACL (Myxredlin In Ns 100 Unit/100 Ml) 100 mls @ 0.5 mls/hr IV TITRATE [facility]; Protocol Last Titration: 11/27/20 15:00 Dose: 1 unit/hr, 1 mls/hr Documented by: Ibuprofen (Ibuprofen 400 Mg Tab) 400 mg PO Q4H PRN PRN Reason: Pain (mild 1-3) Ibuprofen (Ibuprofen 800 Mg Tab) 800 mg PO Q6H PRN PRN Reason: Pain (mild 1-3) Last Admin: 11/29/20 04:59 Dose: 800 mg Documented by: Insulin Human Regular (Insulin Regular, Human 100 Units/Ml 10 Ml Vial) 0 unit SUBCUT [facility]IDACANDBED [facility]; Protocol Last Admin: 11/28/20 21:12 Dose: Not Given Documented by: Ondansetron HCl (Ondansetron 4 Mg/2 Ml Sdv) 4 mg IVPUSH Q6H PRN PRN Reason: Nausea/Vomiting Oxycodone HCl (Oxycodone 5 Mg Tab) 5 mg PO Q2H PRN PRN Reason: Pain (severe 7-10) Sodium Chloride (Sodium Chloride 0.9% 10 Ml Syringe) 10 ml FLUSH ASDIRECTED PRN PRN Reason: Keep Vein Open Sodium Chloride (Sodium Chloride 0.9% 2.5 Ml Syringe) 2.5 ml FLUSH ASDIRECTED PRN PRN Reason: Keep Vein Open Sodium Chloride (Sodium Chloride 0.9% 10 Ml Sdv) 10 ml IV ASDIRECTED PRN PRN Reason: IV Use Sterile Water (Water For Irrigation,Sterile 1,000 Ml Container) 1,000 ml IRR ASDIRECTED PRN PRN Reason: delivery Terbutaline Sulfate (Terbutaline 1 Mg/Ml Sdv) 0.25 mg SUBCUT ASDIRECTED PRN PRN Reason: Tacysystole Witch Eli (Witch Eli Medicated Pads 40/Jar) 1 pad TOP ASDIRECTED PRN PRN Reason: comfort care Last Admin: 11/27/20 16:24 Dose: 1 container Documented by: Discontinued Medications Bupivacaine HCl (Bupivacaine 0.25% 30 Ml Sdv) Confirm Administered Dose 30 ml .ROUTE .[employer] ONE Stop: 11/27/20 11:27 Butorphanol Tartrate (Butorphanol 1 Mg/Ml Sdv) 1 mg IVPUSH Q1H PRN PRN Reason: Pain (severe 7-10) Last Admin: 11/27/20 10:23 Dose: 1 mg Documented by: Dextrose/Water (50% Dextrose In Water 50 Ml Syringe) 50 ml IVPUSH ASDIRECTED PRN PRN Reason: Hypoglycemia Glucagon (Glucagon,Human Recombinant 1 Mg Vial) 1 mg IM ASDIRECTED PRN PRN Reason: Hypoglycemia Ropivacaine (Naropin 0.2%) Confirm Administered Dose 200 mls @ as directed .ROUTE .[employer] ONE Stop: 11/27/20 11:27 Insulin Human Regular (Insulin Regular, Human 100 Units/Ml 10 Ml Vial) 0.5 unit IV Q2HR [facility]; Protocol Lidocaine HCl (Lidocaine 1% 50 Ml Mdv) 50 ml INJECT ONETIME PRN PRN Reason: Laceration repair Methylergonovine Maleate (Methylergonovine 0.2 Mg/1 Ml Amp) 0.2 mg IM ASDIRECTED PRN PRN Reason: Post Hemorrhage Misoprostol (Misoprostol 200 Mcg Tab) 200 mcg PO ONETIME PRN PRN Reason: Post Hemorrhage - Infant Interaction Infant Disposition, : at Bedside Feeding: Breastfed Infant; Nursed Well Support Person: - Recovery Exam Fundal Tone: Firm Fundal Level: 1 Fingerbreadths Below Umbilicus Fundal Placement: Midline Lochia Amount: Scant Lochia Color: Rubra/Red Episiotomy/Laceration: None Bladder Status: Voiding Urinary Elimination: Voided Other Urinary Elimination, : Waiting for void post delivery/post catheter. - Exam General: Alert, Oriented Neck: Supple Lungs: Clear to Auscultation, Normal Respiratory Effort Cardiovascular: Regular Rate, Regular Rhythm GI/Abdominal Exam: Normal Bowel Sounds Extremities: Normal Inspection, Non-Tender, No Pedal Edema Skin: Warm, Dry Neurological: No New Focal Deficit Psy/Mental Status: Alert, Normal Affect, Normal Mood - Problem List Review Problem List Initiated/Reviewed/Updated: Yes - Assessment Assessment:: 30-year-old (38w6d dated by ultrasound at 8 weeks) induction of labor d/t gestational diabetes insulin controlled with uncomplicated vaginal delivery. Viable girl. Apgars 7 and 8. Weight 3810 grams. GBS negative, rubella immune, . Pain controlled overnight. POC glucose 124 last night. - Plan Plan:: - Routine care - Motrin for pain - Encourage ambulation - Can likely discharge today - F/u in clinic in 4 weeks <Yaritza Sanches - Last Filed: 11/29/20 10:31> - Patient Data Vital Signs - Most Recent: Last Vital Signs Temp 36.1 C 11/29/20 08:00 Pulse 71 11/29/20 08:00 Resp 18 11/29/20 08:00 BP 110/74 11/29/20 08:00 Pulse Ox 96 11/29/20 08:00 Lab Results - Last 24 Hours: Laboratory Results - last 24 hr 11/28/20 11/28/20 11/28/20 Range/Units 12:12 18:05 21:12 POC Glucose 112 H 127 H 124 H (70-99) mg/dL 11/29/20 Range/Units 08:37 POC Glucose 130 H (70-99) mg/dL Med Orders - Current: Current Medications Acetaminophen (Acetaminophen 500 Mg Tab) 500 mg PO Q4H PRN PRN Reason: Pain (mild 1-3) Acetaminophen (Acetaminophen 500 Mg Tab) 1,000 mg PO Q4H PRN PRN Reason: Pain (mild 1-3) Last Admin: 11/29/20 04:59 Dose: 1,000 mg Documented by: Benzocaine/Menthol (Benzocaine/Menthol 20%-0.5% [place] 78 Gm Cannister) 78 gm TOP ASDIRECTED PRN PRN Reason: Perineal Comfort Measure Last Admin: 11/27/20 16:24 Dose: 1 can Documented by: Bisacodyl (Bisacodyl 10 Mg Supp) 10 mg RECTAL ONETIME PRN PRN Reason: Constipation Carboprost Tromethamine (Carboprost Tromethamine 250 Mcg/1 Ml Amp) 250 mcg IM ASDIRECTED PRN PRN Reason: Post Hemorrhage Dextrose/Water (50% Dextrose In Water 50 Ml Syringe) 50 ml IVPUSH ASDIRECTED PRN PRN Reason: Hypoglycemia Docusate Sodium (Docusate Sodium 100 Mg Cap) 100 mg PO Q12H PRN PRN Reason: Constipation Last Admin: 11/28/20 12:26 Dose: 100 mg Documented by: Emollient Ointment (Lanolin 100% Cream 7 Gm Tube) 0 gm TOP ASDIRECTED PRN PRN Reason: Sore Nipples Glucagon (Glucagon,Human Recombinant 1 Mg Vial) 1 mg IM ASDIRECTED PRN PRN Reason: Hypoglycemia Oxytocin/Sodium Chloride (Oxytocin 30 Unit/500 Ml-Ns) 30 unit in 500 mls @ 999 mls/hr IV TITRATE [facility] Last Admin: 11/27/20 15:04 Dose: 500 mls/hr Documented by: Tranexamic Acid 1,000 mg/ (Sodium Chloride) 110 mls @ 660 mls/hr IV ONETIME PRN PRN Reason: Bleeding Oxytocin/Sodium Chloride (Oxytocin 30 Unit/500 Ml-Ns) 30 unit in 500 mls @ 2 mls/hr IV TITRATE [facility]; Protocol Last Titration: 11/27/20 13:32 Dose: 10 munits/min, 10 mls/hr Documented by: Lactated Ringer's (Ringers, Lactated) 1,000 mls @ 150 mls/hr IV ASDIRECTED [facility] Last Admin: 11/27/20 11:46 Dose: 150 mls/hr Documented by: Dextrose/Lactated Ringer's (Dextrose 5%-Lactated Ringers) 1,000 mls @ 100 mls/hr IV ASDIRECTED [facility] Last Admin: 11/27/20 09:15 Dose: 100 mls/hr Documented by: Insulin Regular in 0.9 % NACL (Myxredlin In Ns 100 Unit/100 Ml) 100 mls @ 0.5 mls/hr IV TITRATE [facility]; Protocol Last Titration: 11/27/20 15:00 Dose: 1 unit/hr, 1 mls/hr Documented by: Ibuprofen (Ibuprofen 400 Mg Tab) 400 mg PO Q4H PRN PRN Reason: Pain (mild 1-3) Ibuprofen (Ibuprofen 800 Mg Tab) 800 mg PO Q6H PRN PRN Reason: Pain (mild 1-3) Last Admin: 11/29/20 04:59 Dose: 800 mg Documented by: Insulin Human Regular (Insulin Regular, Human 100 Units/Ml 10 Ml Vial) 0 unit S UBCUT QIDACANDBED [facility]; Protocol Last Admin: 11/28/20 21:12 Dose: Not Given Documented by: Ondansetron HCl (Ondansetron 4 Mg/2 Ml Sdv) 4 mg IVPUSH Q6H PRN PRN Reason: Nausea/Vomiting Oxycodone HCl (Oxycodone 5 Mg Tab) 5 mg PO Q2H PRN PRN Reason: Pain (severe 7-10) Sodium Chloride (Sodium Chloride 0.9% 10 Ml Syringe) 10 ml FLUSH ASDIRECTED PRN PRN Reason: Keep Vein Open Sodium Chloride (Sodium Chloride 0.9% 2.5 Ml Syringe) 2.5 ml FLUSH ASDIRECTED PRN PRN Reason: Keep Vein Open Sodium Chloride (Sodium Chloride 0.9% 10 Ml Sdv) 10 ml IV ASDIRECTED PRN PRN Reason: IV Use Sterile Water (Water For Irrigation,Sterile 1,000 Ml Container) 1,000 ml IRR ASDIRECTED PRN PRN Reason: delivery Terbutaline Sulfate (Terbutaline 1 Mg/Ml Sdv) 0.25 mg SUBCUT ASDIRECTED PRN PRN Reason: Tacysystole Witch Eli (Witch Eli Medicated Pads 40/Jar) 1 pad TOP ASDIRECTED PRN PRN Reason: comfort care Last Admin: 11/27/20 16:24 Dose: 1 container Documented by: Discontinued Medications Bupivacaine HCl (Bupivacaine 0.25% 30 Ml Sdv) Confirm Administered Dose 30 ml .ROUTE .STK-MED ONE Stop: 11/27/20 11:27 Butorphanol Tartrate (Butorphanol 1 Mg/Ml Sdv) 1 mg IVPUSH Q1H PRN PRN Reason: Pain (severe 7-10) Last Admin: 11/27/20 10:23 Dose: 1 mg Documented by: Dextrose/Water (50% Dextrose In Water 50 Ml Syringe) 50 ml IVPUSH ASDIRECTED PRN PRN Reason: Hypoglycemia Glucagon (Glucagon,Human Recombinant 1 Mg Vial) 1 mg IM ASDIRECTED PRN PRN Reason: Hypoglycemia Ropivacaine (Naropin 0.2%) Confirm Administered Dose 200 mls @ as directed .ROUTE .[employer] ONE Stop: 11/27/20 11:27 Insulin Human Regular (Insulin Regular, Human 100 Units/Ml 10 Ml Vial) 0.5 unit IV Q2HR [facility]; Protocol Lidocaine HCl (Lidocaine 1% 50 Ml Mdv) 50 ml INJECT ONETIME PRN PRN Reason: Laceration repair Methylergonovine Maleate (Methylergonovine 0.2 Mg/1 Ml Amp) 0.2 mg IM ASDIRECTED PRN PRN Reason: Post Hemorrhage Misoprostol (Misoprostol 200 Mcg Tab) 200 mcg PO ONETIME PRN PRN Reason: Post Hemorrhage - Plan Plan:: Patient seen and examined. VS are stable. Feels ready to drive home to [place]. Discharge instructions reviewed. [facility]. Adjust insulin to take NPH 20 U in pm, 10 U in am only and check glucose qid. She will call to clinic on Friday with update on glucose reads to make adjustments as needed. Discharge to home today.
[2020-11-29] MEDS: Insulin Regular, Human 100 Units/ML 10 ML Vial SUBCUT SCH (13:43)
--- NOTE | 2020-11-30 14:53 | PCM48HPAN ---
Post Anesthesia Note - EVALUATION WITHIN 48HRS OF ANESTHETIC Vital Signs in Normal Range: Yes Patient Participated in Evaluation: Yes Respiratory Function Stable: Yes Airway Patent: Yes Cardiovascular Function Stable: Yes Hydration Status Stable: Yes Pain Control Satisfactory: Yes Nausea and Vomiting Control Satisfactory: Yes Mental Status Recovered: Yes Vital Signs: Last Vital Signs Temp 97.0 F 11/29/20 08:00 Pulse 71 11/29/20 08:00 Resp 18 11/29/20 08:00 BP 110/74 11/29/20 08:00 Pulse Ox 96 11/29/20 08:00
== END 2020-11-29 15:45 | disposition home or self-care (01) | DRG 807 ==
LOC: MW.OBCHECK 05:32 → MW.OB 05:33 → MW.OBCHECK 06:07 → MW.OB 06:07 → OBSVTOIN 15:03 → MW.OB 23:20
PROVIDERS: ADMIT Obstetrics & Gynecology; ATTEND Obstetrics & Gynecology
PROC: 10E0XZZ Delivery of Products of Conception, External Approach (ICD-10-PCS; principal; 2020-11-27)
PROC: 10907ZC Drainage of Amniotic Fluid, Therapeutic from Products of Conception, Via Natural or Artificial Opening (ICD-10-PCS; 2020-11-27)
PROC: 3E0R3BZ Introduction of Anesthetic Agent into Spinal Canal, Percutaneous Approach (ICD-10-PCS; 2020-11-27)
DX: O24.420 Gestational diabetes mellitus in childbirth, diet controlled (principal); Z37.0 Single live birth; Z3A.38 38 weeks gestation of pregnancy; O99.214 Obesity complicating childbirth; Z20.822 Contact with and (suspected) exposure to COVID-19
CPT/HCPCS: 01967; 36415; 51702; 59025; 59409; 82803; 82947; 85014; 85018; 85027; 86592; 86850; 86900; 86901; A9270-GY; J0595; J1815; J1815-GY; J2590; J2795; J3490; J7120; J7121; U0002